=== PATIENT | male | born 1985 ===

== ENCOUNTER 2020-06-06 06:40 | Day surgery (SDC) | payer SELFPAY ==
[~2020-06-06 06:40] MED LIST: Lactated Ringers 1,000 ML IV SCH; Sodium Chloride 0.9% 10 ML SDV IV PRN; Sodium Chloride 0.9% 10 ML Syringe FLUSH PRN; Sodium Chloride 0.9% 2.5 ML Syringe FLUSH PRN
[2020-06-06] MEDS ORDERED: Propofol 200 MG/20 ML SDV ONE (07:08)
[2020-06-06] MEDS ORDERED: fentaNYL 100 MCG/2 ML SDV ONE (07:08)
[2020-06-06] MEDS ORDERED: Midazolam 1 MG/ML 2 ML SDV ONE (07:08)
[2020-06-06] MEDS ORDERED: Glycopyrrolate 0.2 MG/ML SDV ONE (07:11)
[2020-06-06] MEDS ORDERED: Ondansetron 4 MG/2 ML SDV ONE (07:11)
[2020-06-06] MEDS ORDERED: Lidocaine 2% 5 ML SDV ONE (07:11)
[2020-06-06] MEDS ORDERED: Ketorolac 30 MG/ML SDV ONE (07:11)
[2020-06-06] MEDS ORDERED: Bupivacaine 0.5% 10 ML SDV ONE (07:13)
--- NOTE | 2020-06-06 07:23 | PCM.PREANE ---
Preanesthetic Assessment - Anesthesia/Transfusion/Family Hx Anesthesia History: Prior Anesthesia Without Reaction Family History of Anesthesia Reaction: No Transfusion History: No Prior Transfusion(s) Intubation History: Unknown - Review of Systems General: No Symptoms Pulmonary: No Symptoms Cardiovascular: No Symptoms Gastrointestinal: No Symptoms Neurological: No Symptoms Other: Reports: None - Physical Assessment Vital Signs: Last Vital Signs Temp 36.9 C 06/06/20 06:46 Pulse 92 06/06/20 06:46 Resp 15 06/06/20 06:46 BP 137/86 06/06/20 06:46 Pulse Ox 95 06/06/20 06:46 Height: 6 ft Weight: 102.058 kg ASA Class: 2 Mental Status: Alert & Oriented x3 Airway Class: Mallampati = 1 Dentition: Reports: Normal Dentition Thyro-Mental Finger Breadths: 3 Mouth Opening Finger Breadths: 3 ROM/Head Extension: Full Lungs: Clear to Auscultation, Normal Respiratory Effort Cardiovascular: Regular Rate, Regular Rhythm - Allergies Allergies/Adverse Reactions: Allergies Allergy/AdvReac Type Severity Reaction Status Date / Time No Known Allergies Allergy Verified 05/31/20 08:25 - Blood Blood Available: No - Anesthesia Plan Pre-Op Medication Ordered: None - Acknowledgements Anesthesia Type Planned: General Anesthesia Pt an Appropriate Candidate for the Planned Anesthesia: Yes Alternatives and Risks of Anesthesia Discussed w Pt/Guardian: Yes Pt/Guardian Understands and Agrees with Anesthesia Plan: Yes PreAnesthesia Questionnaire HEENT History: Reports: None Cardiovascular History: Reports: Hypertension Respiratory History: Reports: None Gastrointestinal History: Reports: None Genitourinary History: Reports: None Musculoskeletal History: Reports: None Neurological History: Reports: None Psychiatric History: Reports: None Endocrine/Metabolic History: Reports: Obesity/BMI 30+ (BMI 30.5) Hematologic History: Reports: None Immunologic History: Reports: None Oncologic (Cancer) History: Reports: None Dermatologic History: Reports: Eczema Other Dermatologic History: "wintertime eczema" - Past Surgical History Head Surgeries/Procedures: Reports: None HEENT Surgical History: Reports: None Cardiovascular Surgical History: Reports: None Respiratory Surgical History: Reports: None GI Surgical History: Reports: Hernia, Abdominal Male Surgical History: Reports: None Endocrine Surgical History: Reports: None Neurological Surgical History: Reports: None Musculoskeletal Surgical History: Reports: None Oncologic Surgical History: Reports: None Dermatological Surgical History: Reports: None - SUBSTANCE USE Tobacco Use Status *Q: Current Every Day Tobacco User Tobacco Use Within Last Twelve Months: Cigarettes Recreational Drug Type: Reports: Marijuana/Hashish - HOME MEDS Home Medications: Home Meds hydroCHLOROthiazide [Hydrochlorothiazide] 1 tab PO DAILY 05/31/20 [History] - CURRENT (IN HOUSE) MEDS Current Meds: Current Medications Lactated Ringer's (Ringers, Lactated) 1,000 mls @ 100 mls/hr IV ASDIRECTED JHONATAN Last Admin: 06/06/20 07:00 Dose: 100 mls/hr Documented by: Sodium Chloride (Saline Flush) 2.5 ml FLUSH ASDIRECTED PRN PRN Reason: Keep Vein Open Sodium Chloride (Normal Saline) 10 ml IV ASDIRECTED PRN PRN Reason: IV Use Sodium Chloride (Saline Flush) 10 ml FLUSH ASDIRECTED PRN PRN Reason: Keep Vein Open Discontinued Medications Bupivacaine HCl (Sensorcaine-Mpf 0.5%) Confirm Administered Dose 20 ml .ROUTE .STK-MED ONE Stop: 06/06/20 07:14 Fentanyl (Sublimaze) Confirm Administered Dose 100 mcg .ROUTE .STK-MED ONE Stop: 06/06/20 07:09 Glycopyrrolate (Robinul) Confirm Administered Dose 0.2 mg .ROUTE .STK-MED ONE Stop: 06/06/20 07:12 Ketorolac Tromethamine (Toradol) Confirm Administered Dose 30 mg .ROUTE .STK-MED ONE Stop: 06/06/20 07:12 Lidocaine (Xylocaine-Mpf 2%) Confirm Administered Dose 5 ml .ROUTE .STK-MED ONE Stop: 06/06/20 07:12 Midazolam HCl (Versed 1 Mg/Ml) Confirm Administered Dose 2 mg .ROUTE .STK-MED ONE Stop: 06/06/20 07:09 Ondansetron HCl (Zofran) Confirm Administered Dose 4 mg .ROUTE .STK-MED ONE Stop: 06/06/20 07:12 Propofol (Diprivan 20 Ml) Confirm Administered Dose 200 mg .ROUTE .STK-MED ONE Stop: 06/06/20 07:09
--- NOTE | 2020-06-06 09:12 | PCM.POSTAN ---
POST ANESTHESIA ASSESSMENT - MENTAL STATUS Mental Status: Alert, Oriented - VITAL SIGNS Vital Signs: Last Vital Signs Temp 36.4 C 06/06/20 08:47 Pulse 80 06/06/20 09:04 Resp 11 L 06/06/20 09:04 BP 128/85 06/06/20 09:04 Pulse Ox 98 06/06/20 09:04 - RESPIRATORY Respiratory Status: Respiratory Rate WNL, Airway Patent, O2 Saturation Stable - CARDIOVASCULAR CV Status: Pulse Rate WNL, Blood Pressure Stable - GASTROINTESTINAL GI Status: No Symptoms - PAIN Pain Score: 0 - POST OP HYDRATION Hydration Status: Adequate & Stable - OBSERVATIONS Free Text/Narrative:: No anesthesia problems
--- NOTE | 2020-06-06 09:41 | PCM48HPAN ---
Post Anesthesia Note - EVALUATION WITHIN 48HRS OF ANESTHETIC Vital Signs in Normal Range: Yes Patient Participated in Evaluation: Yes Respiratory Function Stable: Yes Airway Patent: Yes Cardiovascular Function Stable: Yes Hydration Status Stable: Yes Pain Control Satisfactory: Yes Nausea and Vomiting Control Satisfactory: Yes Mental Status Recovered: Yes Vital Signs: Last Vital Signs Temp 36.5 C 06/06/20 09:10 Pulse 74 06/06/20 09:10 Resp 14 06/06/20 09:10 BP 136/89 06/06/20 09:10 Pulse Ox 98 06/06/20 09:10 - COMMENTS/OBSERVATIONS Free Text/Narrative:: No anesthesia problems
--- NOTE | 2020-06-06 09:57 | OR ---
SURGEON: Ruthy Ramirez M.D. DATE OF PROCEDURE: 06/06/2020 PREOPERATIVE DIAGNOSIS: Azoospermia. POSTOPERATIVE DIAGNOSIS: Azoospermia. OPERATION: Bilateral testicular biopsies. DESCRIPTION OF PROCEDURE: The patient was given general anesthesia. He was in dorsal lithotomy position, prepped and draped in sterile drapes. Left testicle was held tightly against the skin. A small incision was made and the content of the testicle was delivered through the wound at which time the Metzenbaum scissors were used to obtain a sample, which was put in formalin, and the wound was closed with figure- of-eight one stitch of 3-0 chromic. The exact same procedure was done on the right side. They were both submitted separate. The patient tolerated the procedure well and was moved to recovery room in good condition. ANDRE / SAAD /[id number]
[2020-06-07] MEDS ORDERED: Non-Formulary Medication 1 Each (Hydrochlorothiazide [Hydrochlorothiazide] 1 TAB) PO SCH (09:00)
== END 2020-06-06 09:55 | disposition home or self-care (01) ==
LOC: MW.SDS 06:40 → MERGE 06:40 → MW.SDS 09:55
PROVIDERS: ATTEND Urology
DX: N46.01 Organic azoospermia (principal); I10 Essential (primary) hypertension; E66.9 Obesity, unspecified; F17.210 Nicotine dependence, cigarettes, uncomplicated; Z79.899 Other long term (current) drug therapy; Z98.890 Other specified postprocedural states; Z68.30 Body mass index [BMI] 30.0-30.9, adult
CPT/HCPCS: 36415; 54505; 82670; 84403; 88230; 88305; J1885; J2001; J2250; J2405; J2704; J3010; J3490; J7120; 00920